=== PATIENT | male | born 1945 ===

== ENCOUNTER 2024-04-07 19:25 | Emergency (ER) | payer MEDICARE ==
[2024-04-07] MEDS: Lidocaine 1% 5 ML VIAL INJECT ONE (19:45)
[2024-04-07] MEDS: Bacitracin Oint 1 GM U/D Packet TOP ONE (20:00)
== END 2024-04-07 20:00 | disposition home or self-care (01) ==
LOC: LB.ED 19:25
DX: S61.235A Puncture wound without foreign body of left ring finger without damage to nail, initial encounter (principal); E66.9 Obesity, unspecified; Z68.36 Body mass index [BMI] 36.0-36.9, adult; W45.8XXA Other foreign body or object entering through skin, initial encounter
CPT/HCPCS: 99283